=== PATIENT | male | born 1990 | race Caucasian/White ===

== ENCOUNTER 2024-10-19 16:16 | Inpatient (IN) | payer OTHER ==
--- NOTE | 2024-10-19 17:14 | RAD REPORT ---
EXAM: Soft Tissue Neck W/Contr INDICATION: abscess Sagittal and coronal reformations were generated. This exam was performed according to our department al dose-optimization program, which includes automated exposure control, adjustment of the mA and/or kV according to patient size and/or use of iterative reconstruction technique. IV contrast was administered. COMPARISON: None. FINDINGS: Mucosal spaces: Nasopharynx, oropharynx, oral cavity, larynx and hypopharynx are normal. No suspiciou s masses are identified. Epiglottis is normal in configuration. True vocal cords cords are normally situated. Piriform sinuses are well-aerated. There is significant abnormal skin thickening and subcutaneous fluid measuring up to 2 cm in thicknes s along the left face inferior to the left ear. Several areas of thickened fascia are present extending inferiorly. There is probably localized fluid collection in the subcutaneous tissues in thi s region measuring approximately 2 x 3 cm. Accurate measurement is difficult due to somewhat inhomogeneous margins. This most likely represents a cellulitis with underlying abscess. Lymph Nodes: There are numerous enlarged lymph nodes particularly in the left submandibular and jugul ar chain stations. Salivary Glands: Unremarkable. Thyroid Gland: Normal Included Intracranial Structures: Grossly unremarkable. Included Orbits: Normal Paranasal Sinuses: Predominantly clear Tympanomastoid Cavities: Normal Vascular Structures: Normal Osseous Structures: No acute osseous abnormality. Included Lung Apices: Normal IMPRESSION: Significant inflammatory changes are present along the left aspect of the face with presumed reactive lymphadenopathy present in the region. There is skin thickening as well as subcutaneous fluid and fat stranding suggesting cellulitis with subcutaneous abscess present..
[2024-10-19 17:16] LABS: Absolute Basophils 0.1 K/uL (0-0.5); Absolute Eosinophils 0.1 K/uL (0-0.5); Absolute Lymphocytes (CBC) 1.8 K/uL (0.7-4.9); Absolute Monocytes 2.1 K/uL (0.1-1.3); Absolute Neutrophil 16.8 K/uL (1.8-8.0); Basophils % 0.5 % (0-1.3); Eosinophils % 0.6 % (0-4.4); Hematocrit 46.6 % (39.6-49.0); Hemoglobin 15.9 g/dL (13.6-17.9); Lymphocytes % 8.6 % (15.3-44.8); MCHC 34.1 g/dL (32.0-36.0); MCV 82.2 fL (80-100); MPV 8.8 fL (7.6-11.3); Monocytes % 10.2 % (3.3-12.3); Neutrophils % 80.1 % (41.7-73.7); Platelets 276 thou/uL (152-406); RBC Red Blood Cell Count 5.67 M/uL (4.33-5.43); Red Cell Distribution Width 14.4 % (12.1-15.2)
--- NOTE | 2024-10-19 17:16 | RAD REPORT ---
EXAMINATION: CT MAXILLOFACIAL WITH CONTRAST CLINICAL INDICATION: swelling, abscess;Facial pain TECHNIQUE: Axial images were obtained through the facial bones and orbits with intravenous contrast. Sagittal and coronal reconstructions were created from the data. One or more of the following dose reduction techniques were used: Automated exposure control, adjustment of the mA and/or kV according to patient size, and/or iterative reconstruction. Unless otherwise specified, incidental findings do not require dedicated imaging follow-up. COMPARISON: No prior exam. FINDINGS: SOFT TISSUE: Significant skin thickening, subcutaneous fat stranding and subcutaneous fluid is presen t inferior to the left ear. There is amorphous fluid collection in the region below the skin surface about by 3 cm probably localized abscess. BONES: No evidence of fracture, dislocation, or aggressive osseous lesions. No lesion of the visuali zed skull base or calvarium. ORBITS: The globes are intact. No intraorbital hemorrhage or mass. SINUSES: The visualized paranasal sinuses and mastoid air cells are essentially clear. Prominent lymph nodes in the left neck and face are favored to be reactive in etiology. IMPRESSION: Significant left-sided inflammatory changes involving the skin and subcutaneous tissue inferior to th e left ear as detailed. This most likely represents cellulitis with underlying subcutaneous abscess.
--- NOTE | 2024-10-19 17:35 | EDPHYS ---
Physician Documentation [facility] Name: Lucio Bell Age: 34 yrs Sex: Male : 1990 Arrival Date: 10/19/2024 Time: 16:16 Bed 20 Private MD: ED Physician Jose Zarate HPI: 10/19 16:32 This 34 yrs old Male presents to ER via Ambulatory with complaints of Facial Swelling, rn ear swelling. 16:32 the patient presents with a swollen area of the face. Onset: The symptoms/episode rn began/occurred 2 day(s) ago. Patient reports left facial swelling that began 2 days ago. Started as a small pimple that he tried to pop now today significantly larger with more pain. Patient went home and attempted incision and drainage of the abscess with razor blade, he claims it was clean, is draining pus and blood. Did not relieve swelling or pain.. Historical: - Allergies: 16:23 No Known Allergies; ll1 - Home Meds: 16:23 None [Active]; ll1 - PMHx: 16:23 None; ll1 - PSHx: 16:23 None; ll1 - Immunization history:: Adult Immunizations up to date. - Social history:: Smoking status: Patient denies any tobacco usage or history of. - Family history:: not pertinent. - Hospitalizations: : No recent hospitalization is reported. ROS: 16:32 Constitutional: Negative for fever, chills, and weight loss, ENT: Positive for left rn facial swelling and pain Neck: Negative for injury, pain, and swelling, Cardiovascular: Negative for chest pain, palpitations, and edema, Respiratory: Negative for shortness of breath, cough, wheezing, and pleuritic chest pain, Exam: 16:32 Constitutional: This is a well developed, well nourished patient who is awake, alert, rn and in no acute distress. Head/Face: Left periauricular swelling, approximately 5 x 5 cm area of fluctuance and induration with central puncture wound draining bloody and purulent fluid. There is edema of the inferior ear. Induration extends from parotid region to posterior auricular region along hairline. Cardiovascular: Tachycardic, regular Vital Signs: 16:25 BP 149 / 108; Pulse 124; Resp 17; Temp 98.4; Pulse Ox 99% ; Weight 102.06 kg; Height 6 ll1 ft. 1 in. ; Pain 10/10; 16:25 Body Mass Index 29.68 (102.06 kg, 185.42 cm) ll1 16:25 Pain Scale: Adult ll1 MDM: 16:21 Medical Screening Exam initiated rn 17:33 Differential diagnosis: abscess, cellulitis. Data reviewed: vital signs, nurses notes, pattern lease inspector test result(s), radiologic studies, CT scan, and as a result, I will admit patient. Consideration of Admission/Observation Patient was admitted/placed on observation. Escalation of care including admission/observation considered. Management of patient was discussed with the following: Senior Service Technician: Management discussed with Dr. Deras, will consult on patient, request patient n.p.o., IV antibiotics and admission to the hospital. Unsure if going to OR today or tomorrow. Counseling: I had a detailed discussion with the patient and/or guardian regarding the historical points, exam findings, and any diagnostic results supporting the discharge/admit diagnosis, lab results, radiology results, the need for further work-up and treatment in the hospital. 10/19 16:25 Order name: CBC with Diff; Complete Time: 17:35 rn 10/19 16:25 Order name: Basic Metabolic Panel; Complete Time: 17:48 rn 10/19 16:26 Order name: Blood Culture Adult (2) rn 10/19 16:26 Order name: Lactate w/ 2H reflex if indic. rn 10/19 16:26 Order name: Protime (+inr) rn 10/19 16:26 Order name: Ptt, Activated rn 10/19 18:22 Order name: Urinalysis w/ reflexes EDID 10/19 18:22 Order name: CBC with Automated Diff EDID 10/19 18:22 Order name: CBC with Automated Diff EDID 10/19 18:22 Order name: Comprehensive Metabolic Panel EDID 10/19 18:22 Order name: Comprehensive Metabolic Panel EDID 10/19 16:25 Order name: CT Facial Bones W/ Con \T\ Mpr; Complete Time: 17:18 rn 10/19 16:55 Order name: Soft Tissue Neck W/Contr CT; Complete Time: 17:18 rn 10/19 16:25 Order name: IV Start; Complete Time: 18:23 rn 10/19 16:26 Order name: Accucheck; Complete Time: 18:21 rn 10/19 16:26 Order name: Cardiac monitoring; Complete Time: 18: rn 10/19 16:26 Order name: EKG - Nurse/Tech; Complete Time: 18: rn 10/19 16:26 Order name: IV Saline Lock - Large Bore; Complete Time: 18: rn 10/19 16:26 Order name: Labs collected and sent; Complete Time: 18: rn 10/19 16:26 Order name: O2 Per Protocol; Complete Time: 18: rn 10/19 16:26 Order name: O2 Sat Monitoring; Complete Time: 18: rn 10/19 16:26 Order name: Vital Signs; Complete Time: 18: rn Administered Medications: 18:21 Drug: Clindamycin IVPB 600 mg IVPB once over 30 mins; (mix in 50 mL) Route: IVPB; bp Infused Over: 30 mins; Site: right antecubital; 18:21 Drug: NS 0.9% IV 1000 ml IV at 1000 ml once; to be given as a bolus over 60 minutes bp Route: IV; Rate: 1000 ml; Site: right antecubital; Disposition Summary: 10/19/24 17:35 Hospitalization Ordered Notes: Hospitalization Status: Inpatient Admission rn Provider: Albino Villanueva rn Location: Telemetry/MedSurg (Inpatient) rn Condition: Stable rn Problem: new rn Symptoms: have improved rn Bed/Room Type: Standard rn Room Assignment: rn Diagnosis - Facial cellulitis and abscess rn Forms: - Medication Reconciliation Form rn - SBAR form rn - Leadership Thank You Letter rn Signatures: Dispatcher [employer] Jose Gil MD MD rn Peltier, Brian, RN RN bp Lewis, Lynsay RN RN ll1 Corrections: (The following items were deleted from the chart) 16:55 16:55 Soft Tissue Neck W/Contr+CT.RAD.BRZ ordered. EDMS OTILIA
--- NOTE | 2024-10-19 17:35 | ER ---
Nurse's Notes [facility] Name: Lucio Bell Age: 34 yrs Sex: Male : 1990 Arrival Date: 10/19/2024 Time: 16:16 Bed 20 Private MD: Diagnosis: Facial cellulitis and abscess Presentation: 10/19 16:22 Chief complaint: Patient states: Abscess to L ear/head area for 2 days, getting worse ll1 each day. + bloody drainage. Coronavirus screen: Client denies travel out of the [place] in the last 14 days. At this time, the client does not indicate any symptoms associated with coronavirus-19. Ebola Screen: Patient denies travel to an Ebola-affected area in the 21 days before illness onset. Initial Sepsis Screen: Does the patient meet any 2 criteria? No. Patient's initial sepsis screen is negative. Does the patient have a suspected source of infection? No. Patient's initial sepsis screen is negative. Risk Assessment: Do you want to hurt yourself or someone else? Patient reports no desire to harm self or others. Onset of symptoms was October 18, 2024. 16:22 Method Of Arrival: Ambulatory ll1 16:22 Acuity: SANDY 2 ll1 Triage Assessment: 16:23 General: Appears uncomfortable, Behavior is calm, cooperative, appropriate for age. ll1 Pain: Complains of pain in left ear Pain currently is 9 out of 10 on a pain scale. Quality of pain is described as aching, throbbing. Derm: Abscess located on face is half dollar sized, has purulent drainage, is hot to touch, is red, is raised. Historical: - Allergies: 16:23 No Known Allergies; ll1 - Home Meds: 16:23 None [Active]; ll1 - PMHx: 16:23 None; ll1 - PSHx: 16:23 None; ll1 - Immunization history:: Adult Immunizations up to date. - Social history:: Smoking status: Patient denies any tobacco usage or history of. - Family history:: not pertinent. - Hospitalizations: : No recent hospitalization is reported. Screenin:22 [place] ED Fall Risk Assessment (Adult) History of falling in the last 3 months, bp including since admission No falls in past 3 months (0 pts) Confusion or Disorientation No (0 pts) Intoxicated or Sedated No (0 pts) Impaired Gait No (0 pts) Mobility Assist Device Used No (0 pt) Altered Elimination No (0 pt) Score/Fall Risk Level 0 - 2 = Low Risk Oriented to surroundings. Abuse screen: Denies threats or abuse. Denies injuries from another. Nutritional screening: No deficits noted. Tuberculosis screening: No symptoms or risk factors identified. Assessment: 17:15 General: Appears in no apparent distress. Behavior is calm. Pain: Complains of pain in iw left ear and face. Neuro: Level of Consciousness is awake, alert, obeys commands, Oriented to person, place, time, situation, Moves all extremities. Cardiovascular: Patient's skin is warm and dry. Respiratory: Respiratory effort is even, unlabored, Respiratory pattern is regular. EENT: Derm:. Musculoskeletal: Range of motion: intact in all extremities. Injury Description: Laceration sustained to left submandibular area and left lateral aspect of neck Puncture sustained to left ear, left cheek and left jaw. Vital Signs: 16:25 BP 149 / 108; Pulse 124; Resp 17; Temp 98.4; Pulse Ox 99% ; Weight 102.06 kg; Height 6 ll1 ft. 1 in. ; Pain 10/10; 16:25 Body Mass Index 29.68 (102.06 kg, 185.42 cm) ll1 16:25 Pain Scale: Adult ll1 ED Course: 16:20 Patient arrived in ED. im 16:21 Jose Zarate MD is Attending Physician. rn 16:22 Arm band placed on. ll1 16:23 Triage completed. ll1 17:02 CT Facial Bones W/ Con \T\ Mpr In Process Unspecified. EDMS 17:03 Soft Tissue Neck W/Contr CT In Process Unspecified. EDMS 17:12 First set of blood cultures drawn by me. ty 17:12 Inserted saline lock: 22 gauge in right antecubital area, using aseptic technique. ty Blood collected. Flushed with 10 mL NS. 17:12 Initial lab(s) drawn, by ED staff, sent to lab. ty 17:28 Inserted saline lock: 20 gauge in left forearm, using aseptic technique. Blood ty collected. Flushed with 10 mL NS. 17:28 Second set of blood cultures drawn by me. Initial lab(s) drawn, by me, sent to lab. ty 17:34 Albino Villanueva MD is Hospitalizing Provider. rn 17:43 Wilbert Shea, RN is Primary Nurse. bp 18:22 Patient has correct armband on for positive identification. bp 19:50 sent to surgery. ay 19:50 No provider procedures requiring assistance completed. vc1 20:11 Provided Education on: Surgical Consent. vc1 Administered Medications: 18:21 Drug: Clindamycin IVPB 600 mg IVPB once over 30 mins; (mix in 50 mL) Route: IVPB; bp Infused Over: 30 mins; Site: right antecubital; 18:21 Drug: NS 0.9% IV 1000 ml IV at 1000 ml once; to be given as a bolus over 60 minutes bp Route: IV; Rate: 1000 ml; Site: right antecubital; Medication: 20:11 VIS not applicable for this client. vc1 Outcome: 17:35 Decision to Hospitalize by Provider. rn 19:50 Admitted to OR accompanied by tech, ay 19:50 Condition: stable 19:50 Instructed on need for surgery Demonstrated understanding of 20:11 Condition: stable vc1 20:11 Patient left the ED. vc1 Signatures: Dispatcher [employer] EDMS Rylee Barth, RN Jose Cuevas MD MD rn Peltier, Brian, RN RN Soha Lee RN RN ll1 Calcote, Vanessa, RN RN vc1 Lora Acevedo Tylor ty Yakubu, Awudu, RN RN ay
[2024-10-19 17:39] LABS: Anion Gap 9.8 mEq/L (5.0-15.0); Potassium 3.8 mEq/L (3.5-5.1)
[2024-10-19 18:01] LABS: PT Prothrombin Time 13.2 SECONDS (9.4-12.5); PTT, Activated Partial Thromb 32.8 SECONDS (24.3-36.9); Protime INR 1.26
[2024-10-19] MEDS ORDERED: NA CHLORIDE 0.9% 1,000 ML ONE (18:09)
[2024-10-19] MEDS ORDERED: CLINDAMYCIN 600MG/D5W 50 ML IV ONE (18:09)
[2024-10-19] MEDS ORDERED: ACETAMINOPHEN 325 MG TABLET PO PRN (18:17)
[2024-10-19] MEDS ORDERED: MIDAZOLAM HCL 2 MG/2 ML INJ ONE (19:42)
[2024-10-19] MEDS ORDERED: EPHEDRINE SULF 50 MG/ML VIAL ONE (19:43)
[2024-10-19] MEDS ORDERED: FENTANYL CITR 100 MCG/2 ML ONE (19:43)
[2024-10-19] MEDS ORDERED: propofoL 200 MG/20 ML VIAL IV ONE (19:43)
[2024-10-19] MEDS ORDERED: LIDOCAINE 2% MPF 5 ML VIAL ONE (19:44)
[2024-10-19] MEDS ORDERED: SUCCINYLCHOLINE 20 MG/ML (10 ML) IV ONE (19:57)
[2024-10-19] MEDS ORDERED: ROCURONIUM 50 MG/5 ML VIAL IV ONE (19:58)
--- NOTE | 2024-10-19 20:12 | P.HP ---
Certification for Inpatient Patient admitted to: Inpatient With expected LOS: >2 Midnights Practitioner: I am a practitioner with admitting privileges, knowledge of patient current condition, hospital course, and medical plan of care. Services: Services provided to patient in accordance with Admission requirements found in Title 42 Section 412.3 of the Code of Federal Regulations Patient History Date of Service: 10/19/24 Reason for admission: facial swelling History of Present Illness: 34-year-old male presented to the emergency room with complaints of left-sided facial and ear swelling reports onset 4 days ago. He had progressive swelling and redness. He did use a razor blade to try to drain his swelling. Despite that he had progressive swelling. States he felt feverish. Denies checking his temperature. Denies taking any other medications. He works as an maintenance electrician. In the emergency room ENT was contacted. He is being admitted for facial cellulitis and facial swelling. Allergies No Known Allergies Allergy (Unverified 10/19/24 18:39) Review of Systems 10-point ROS is otherwise unremarkable General: Fever ENT: Ear Pain Integumentary: Rash, Lesions Physical Examination - Physical Exam General: Alert, Oriented x3 HEENT: Other (left ear and jawline swelling, with drainage) Respiratory: Clear to auscultation bilaterally, Normal air movement Cardiovascular: No edema, Normal pulses, Regular rate/rhythm Gastrointestinal: Soft and benign, Non-distended Musculoskeletal: No clubbing, No swelling - Studies Laboratory Data (last 24 hrs) 10/19/24 10/19/24 10/19/24 17:23 17:00 17:00 WBC 21.00 H Hgb 15.9 Hct 46.6 Plt Count 276 PT 13.2 H INR 1.26 APTT 32.8 Sodium 133 L Potassium 3.8 BUN 7 Creatinine 0.83 Glucose 264 H Assessment and Plan - Problems (Diagnosis) (1) Acute cellulitis Current Visit: Yes Status: Acute - Plan 34-year-old male presents with left face and ear swelling facial cellulitis/abscess plan: NPO IVF ENT consult followup cultures PRN pain medication vancomycin and zosyn SCDs Full - Advance Directives Does patient have a Living Will: No Does patient have a Durable POA for Healthcare: No
[2024-10-19] MEDS: LIDOCAINE HCL/EPINEPHRINE 20 ML MDV ONE (20:15)
[2024-10-19] MEDS ORDERED: KETOROLAC 30 MG/ML INJ ONE (20:27)
[2024-10-19] MEDS ORDERED: ONDANSETRON 4 MG/2 ML VIAL ONE (20:28)
--- NOTE | 2024-10-19 20:49 | P.OP ---
Web Systems Developer: NONE,NONE Preoperative diagnosis: left facial abscess Postoperative diagnosis: same Primary procedure: incision & drainage of facial abscess Anesthesia: general Estimated blood loss: 20ml Specimen: L facial abscess for culture and sensitivity Findings: copious pus and inflammation Operative Technique: After induction, the face and neck were prepped with Betadine and draped in a sterile fashion. The area of spontaneous drainage was enlarged to a 1cm opening with 15 blade. Culture of wound contents and pus was collected. The abscess cavity was bluntly dissected with clamps and copious irrigation and pressure to the surrounding area was performed with several iterations until the abscess cavity was well evacuated. A 1/4 inch juanito drain was inserted and secured to the skin with a single nylon suture. Direct pressure applied for a few minutes to help control oozing. Gauze and Spandage dressing applied. Patient return to care of anesthesia team for extubation and transport to the recovery room. Plan to admit for IV Abx, await culture results and recommend HgbA1C due to blood glucose >200 on admission with no known prior diagnosis of DM. Complications: None Drain(s): Wound drain Fluids & blood products: seen anesthesia record Transferred to: Recovery Room Condition: Good
[2024-10-19] MEDS: VANCOMYCIN 2.5 GM in NA CHLORIDE 0.9% 500 ML IVPB ONE (21:03)
[2024-10-19 21:09] VITALS: O2SAT 97
[2024-10-19 22:33] VITALS: BMI 29.9
[2024-10-20] MEDS: PIPER TAZO 3.375 GM in NA CHLORIDE 0.9% 100 ML IV SCH (00:47)
[2024-10-20] MEDS: NA CHLORIDE 0.9% 1,000 ML IV SCH (00:47)
[2024-10-20 04:47] LABS: Absolute Eosinophils 0.1 K/uL (0-0.5); Absolute Lymphocytes (CBC) 1.2 K/uL (0.7-4.9); Absolute Monocytes 1.9 K/uL (0.1-1.3); Absolute Neutrophil 13.1 K/uL (1.8-8.0); Basophils % 0.2 % (0-1.3); Eosinophils % 0.9 % (0-4.4); Hematocrit 40.4 % (39.6-49.0); Hemoglobin 13.5 g/dL (13.6-17.9); Lymphocytes % 7.6 % (15.3-44.8); MCH 27.5 pg (27.0-35.0); MCHC 33.3 g/dL (32.0-36.0); MCV 82.7 fL (80-100); MPV 8.4 fL (7.6-11.3); Monocytes % 11.6 % (3.3-12.3); Neutrophils % 79.7 % (41.7-73.7); Platelets 231 thou/uL (152-406); RBC Red Blood Cell Count 4.89 M/uL (4.33-5.43)
[2024-10-20 05:08] LABS: Albumin 2.8 g/dL (3.4-5.0); Albumin/Globulin Ratio 0.7 (1.1-1.8); Anion Gap 9.6 mEq/L (5.0-15.0); Globulin 4.1 g/dL (2.3-3.5); Potassium 3.6 mEq/L (3.5-5.1); Protein, Total 6.9 g/dL (6.4-8.2)
[2024-10-20] MEDS: VANCOMYCIN 2 GM in NA CHLORIDE 0.9% 500 ML IVPB SCH ×2 (07:00→09:51)
[2024-10-20] MEDS ORDERED: GLUCAGON 1 MG/VIAL IM PRN (07:56)
[2024-10-20] MEDS ORDERED: D10W 125 ML IV PRN (07:56)
[2024-10-20] MEDS: INSULIN REGULAR (HUMAN) 100 UNIT/ML SQ SCH (11:30)
[2024-10-20] MEDS ORDERED: MORPHINE 2 MG/ML SYR IV PRN (12:34)
[2024-10-20] MEDS ORDERED: HYDROCODONE/APAP 5/325 MG TAB PO PRN (12:34)
--- NOTE | 2024-10-20 12:46 | P.PN ---
Date of Service: 10/20/24 POD 1 I&D L face. No complaints, pain improving. Resting comfortably. L face juanito in place, gauze overlying with dried blood and exchanged. Wound Cx: pending HbgA1C: 9.4 1. L facial abscess, continue Vanco for now. Follow for cx results. Not cleared for discharge today but will continue to follow daily with patient for progress. 2. DM (new dx) - advised patient of elevated blood glucose on admission and HgbA1C confirming likely dx of DM. Patient does not have current PCP and will need assistance for outpatient FU including establishing PCP and further education re: diet, medication, DM education. Discussed that differentiation of type 1 vs Type 2 is outside my scope but hospitalist service is welcome to provide additional counseling and initiation of medication management. Change to ADA diet.
--- NOTE | 2024-10-20 18:28 | P.PN ---
Subjective Date of Service: 10/20/24 Chief Complaint: facial swelling Status post I&D today. Patient reports some pain in his wound. He has been afebrile. Physical Examination - Vital Signs Temperature: 98.3 F Blood Pressure: 122/79 Pulse: 89 Respirations: 16 Pulse Ox (%): 99 Assessment And Plan - Plan Physical examination General: Alert and oriented x3, NAD, HEENT: Conjunctiva not pale, anicteric sclera Neck: Supple, no elevated JVD Heart: Heart sounds 1 and 2 normal, regular rhythm, normal rate, no pedal edema Lungs: Clear to auscultation bilaterally, adequate breath sounds bilaterally, no rhonchi or crackles. Abdomen: Soft, nondistended, nontender, normal bowel sounds. Extremities: No tenderness, no deformity Skin: I&D wound-left face Neuro: No focal motor deficit. Normal speech. Psychiatry: Normal mood, no agitation. Diagnosis Cellulitis and abscess of face Diabetes mellitus type 2 Plan: ENT input appreciated. Continue IV vancomycin and Zosyn Analgesics as needed Follow deep tissue wound culture Insulin sliding scale for glucose management. Metformin on discharge.
[2024-10-21 08:14] LABS: Absolute Eosinophils 0.3 K/uL (0-0.5); Absolute Lymphocytes (CBC) 1.8 K/uL (0.7-4.9); Absolute Monocytes 1.1 K/uL (0.1-1.3); Absolute Neutrophil 9.6 K/uL (1.8-8.0); Basophils % 0.2 % (0-1.3); Eosinophils % 2.4 % (0-4.4); Hematocrit 39.3 % (39.6-49.0); Hemoglobin 12.8 g/dL (13.6-17.9); Lymphocytes % 14.2 % (15.3-44.8); MCH 27.2 pg (27.0-35.0); MCHC 32.6 g/dL (32.0-36.0); MCV 83.3 fL (80-100); MPV 8.3 fL (7.6-11.3); Monocytes % 8.7 % (3.3-12.3); Neutrophils % 74.5 % (41.7-73.7); Nucleated Red Blood Cells % 0.1 % (0-0); Platelets 270 thou/uL (152-406); RBC Red Blood Cell Count 4.72 M/uL (4.33-5.43); Red Cell Distribution Width 14.1 % (12.1-15.2)
[2024-10-21 08:24] LABS: Anion Gap 9.6 mEq/L (5.0-15.0); Potassium 4.6 mEq/L (3.5-5.1)
--- NOTE | 2024-10-21 10:47 | P.PN ---
Date of Service: 10/21/24 POD 2 I&D L face. No complaints, pain improving. Tolerating diet. Ambulating in hallways Resting comfortably. L face juanito in place, gauze overlying with dried blood. With pressure there is moderate purluence noted. An 18g angiocath is used to irrigate the wound with 10ml sterile saline through the incision and the juanito is left in place and surrounded with fresh gauze. Wound Cx: pending HbgA1C: 9.4 WBC: 21 -> 16 -> 12 Vanco trough 7 - d/w Wilbert in Pharmacy and will increase dose to 2.25gm starting now - patient's AM dose is pending. 1. L facial abscess, continue Vanco for now - increase dose based on trough levels. Follow for cx results. Not cleared for discharge today but will continue to follow daily with patient for progress. 2. DM (new dx) - now of ISS per admitting team.
[2024-10-21] MEDS: VANCOMYCIN 2.25 GM in NA CHLORIDE 0.9% 500 ML IVPB SCH (12:52)
--- NOTE | 2024-10-21 16:37 | P.PN ---
Subjective Date of Service: 10/21/24 Chief Complaint: facial swelling Patient reports some soreness in his in his wound. He has been afebrile. Physical Examination - Vital Signs Temperature: 97.9 F Blood Pressure: 144/98 Pulse: 93 Respirations: 16 Pulse Ox (%): 97 Assessment And Plan - Plan Physical examination General: Alert and oriented x3, NAD, HEENT: Conjunctiva not pale, anicteric sclera Neck: Supple, no elevated JVD Heart: Heart sounds 1 and 2 normal, regular rhythm, normal rate, no pedal edema Lungs: Clear to auscultation bilaterally, adequate breath sounds bilaterally, no rhonchi or crackles. Abdomen: Soft, nondistended, nontender, normal bowel sounds. Extremities: No tenderness, no deformity Skin: I&D wound-left face Neuro: No focal motor deficit. Normal speech. Psychiatry: Normal mood, no agitation. Diagnosis Cellulitis and abscess of face Diabetes mellitus type 2 Plan: ENT input appreciated. Continue IV vancomycin and Zosyn Analgesics as needed Follow deep tissue wound culture Insulin sliding scale for glucose management. Metformin on discharge. 10/21 Wound culture growing coagulase positive staph. Leukocytosis significantly improved. Blood culture shows no growth. Continue current antibiotics Pharmacy is dosing antibiotics Analgesics as needed. Start Lantus insulin to keep fingerstick glucose less than 200.
[2024-10-21] MEDS: INSULIN GLARGINE 100 UNIT/ML SQ SCH (21:16)
[2024-10-22 05:27] LABS: Absolute Eosinophils 0.3 K/uL (0-0.5); Absolute Lymphocytes (CBC) 1.8 K/uL (0.7-4.9); Absolute Monocytes 0.9 K/uL (0.1-1.3); Absolute Neutrophil 7.5 K/uL (1.8-8.0); Basophils % 0.2 % (0-1.3); Eosinophils % 2.9 % (0-4.4); Hematocrit 35.4 % (39.6-49.0); Hemoglobin 11.9 g/dL (13.6-17.9); MCH 27.5 pg (27.0-35.0); MCHC 33.5 g/dL (32.0-36.0); MCV 82.1 fL (80-100); MPV 8.8 fL (7.6-11.3); Monocytes % 8.7 % (3.3-12.3); Neutrophils % 71.2 % (41.7-73.7); Platelets 252 thou/uL (152-406); RBC Red Blood Cell Count 4.31 M/uL (4.33-5.43)
[2024-10-22 05:43] LABS: Anion Gap 7.7 mEq/L (5.0-15.0); Potassium 3.7 mEq/L (3.5-5.1)
[2024-10-22] MEDS: DOXYCYCLINE 100 MG CAP PO SCH (11:09)
[2024-10-22] MEDS: SMZ./TMP. 800/160 MG TABLET PO SCH (11:10)
[2024-10-22 12:49] VITALS: BP 136/85; TEMP 97.5
--- NOTE | 2024-10-22 13:09 | P.DS ---
Admission Date: 10/19/24 Discharge Date: 10/22/24 Disposition: ROUTINE DISCHARGE Discharge Condition: FAIR Reason for Admission: facial swelling Brief History of Present Illness: 34-year-old male presented to the emergency room with complaints of left-sided facial and ear swelling of 4 days duration. He had progressive swelling and redness. He did use a razor blade to try to drain the swelling. States he felt feverish. In the emergency room, ENT was contacted and patient admitted for facial cellulitis and facial swelling. Hospital Course: Diagnosis Cellulitis and abscess of face Diabetes mellitus type 2 Patient was admitted to the medical floor and started on IV vancomycin and Zosyn. He was evaluated by ENT Dr. Deras who performed incision and drainage. Wound culture grew MRSA sensitive to Bactrim and tetracycline. Blood cultures yielded no growth. Patient had severe leukocytosis which resolved with antibiotics. Patient is fingerstick glucose were noted to be elevated. Hemoglobin A1c of 9.82 noting DM type II. Patient was treated briefly with Lantus insulin and insulin sliding scale. Insulin transitioned to oral metformin and glipizide on discharge. Patient informed to follow-up with ENT Dr. Deras within 1 week. Wound care instructions prescribed. Patient also told to establish care with a primary care physician who will follow his diabetes, monitor his fingerstick glucose and adjust his diabetes medications. Vital Signs/Physical Exam: Temp Pulse Resp BP Pulse Ox 97.5 F 68 16 136/85 98 10/22/24 12:00 10/22/24 12:00 10/22/24 12:00 10/22/24 12:00 10/22/24 12:00 General: Alert, In no apparent distress, Oriented x3 HEENT: Mucous membr. moist/pink Neck: JVD not distended Respiratory: Clear to auscultation bilaterally, Normal air movement Cardiovascular: Regular rate/rhythm Gastrointestinal: Normal bowel sounds, Soft and benign, Non-distended Musculoskeletal: No swelling Integumentary: Other (I&D surgical wound wound below the left ear. Wound looks clean.) Neurological: Normal speech, Normal strength at 5/5 x4 extr Lymphatics: No axilla or inguinal lymphadenopathy Laboratory Data at Discharge: WBC 10.50 thou/uL (4.3-10.9) 10/22/24 04:55 Hgb 11.9 g/dL (13.6-17.9) L 10/22/24 04:55 Hct 35.4 % (39.6-49.0) L 10/22/24 04:55 Plt Count 252 thou/uL (152-406) 10/22/24 04:55 PT 13.2 SECONDS (9.4-12.5) H 10/19/24 17:23 INR 1.26 10/19/24 17:23 APTT 32.8 SECONDS (24.3-36.9) 10/19/24 17:23 Sodium 137 mEq/L (136-145) 10/22/24 04:55 Potassium 3.7 mEq/L (3.5-5.1) D 10/22/24 04:55 BUN 4 mg/dL (7-18) L 10/22/24 04:55 Creatinine 0.59 mg/dL (0.70-1.30) L 10/22/24 04:55 Glucose 166 mg/dL (74-106) H 10/22/24 04:55 Total Bilirubin 1.0 mg/dL (0.2-1.0) 10/20/24 04:17 AST 13 U/L (15-37) L 10/20/24 04:17 ALT 31 U/L (16-61) 10/20/24 04:17 Alkaline Phosphatase 177 U/L (45-117) H 10/20/24 04:17 Home Medications: Alcohol Antiseptic Pads [Alcohol Swabs] 1 each TP DAILY #1 box 10/22/24 Blood Sugar Diagnostic [Blood Glucose Test Strip] 1 each MC DAILY #30 strip 10/22/24 Blood-Glucose Meter [Blood Glucose Monitoring] 1 each MC DAILY #1 kit 10/22/24 Codeine/APAP [Tylenol W/Codeine #3 tab] 1 tab PO Q6HP PRN #20 tab 10/22/24 Doxycycline Hyclate 100 mg PO BID #28 cap 10/22/24 Lancets 1 each MC DAILY #100 ea 10/22/24 Metformin HCl [Glucophage*] 500 mg PO BIDWM #60 tab 10/22/24 Smz./Tmp. [Bactrim Ds 800 MG/160 MG] 1 tab PO BID #28 tab 10/22/24 glipiZIDE [Glipizide] 5 mg PO DAILY #30 tab 10/22/24 New Medications: Codeine/APAP [Tylenol W/Codeine #3 tab] 1 tab PO Q6HP PRN #20 tab PRN Reason: Pain Alcohol Antiseptic Pads [Alcohol Swabs] 1 each TP DAILY #1 box Smz./Tmp. [Bactrim Ds 800 MG/160 MG] 1 tab PO BID #28 tab Blood-Glucose Meter [Blood Glucose Monitoring] 1 each MC DAILY #1 kit Blood Sugar Diagnostic [Blood Glucose Test Strip] 1 each MC DAILY #30 strip Doxycycline Hyclate 100 mg PO BID #28 cap glipiZIDE [Glipizide] 5 mg PO DAILY #30 tab Metformin HCl [Glucophage*] 500 mg PO BIDWM #60 tab Lancets 1 each MC DAILY #100 ea Physician Discharge Instructions: Wound Dressing: dry gauze and head wrap to left facial wound PRN for saturation Diet: ADA Activity: Ad garth Followup: Ghazala Deras MD [ACTIVE - CAN ADMIT] - 1 Week NONE,NONE [Primary Care Provider] - 1 Week Time spent managing pt's care (in minutes): 36
--- NOTE | 2024-10-24 12:20 | EKG ---
Test Date: 2024-10-19 Test Time: 18:13:06 Storage Battery Charger: BP MEASUREMENT RESULTS: Intervals: Rate: 110 CT: 140 QRSD: 76 QT: 326 QTc: 441 [place]: P: 47 CT: 140 QRS: 17 T: 4 INTERPRETIVE STATEMENTS: Sinus tachycardia Moderate voltage criteria for LVH, may be normal variant Borderline ECG No previous ECG available for comparison Electronically Signed On 10-24-24 12:14:46 [employer]ARM EQUIPMENT MAINTENANCE SUPERVISOR by Douglas Saavedra
== END 2024-10-22 13:46 | disposition home or self-care (01) | DRG 603 ==
LOC: ER 16:16 → ERHOLD 18:17 → 2ND 20:27
PROVIDERS: ADMIT Internal Medicine; ATTEND Internal Medicine
PROC: 0J910ZZ Drainage of Face Subcutaneous Tissue and Fascia, Open Approach (ICD-10-PCS; principal; 2024-10-19 20:30)
DX: L03.211 Cellulitis of face (principal); L02.01 Cutaneous abscess of face; E11.9 Type 2 diabetes mellitus without complications; B95.62 Methicillin resistant Staphylococcus aureus infection as the cause of diseases classified elsewhere; Z79.84 Long term (current) use of oral hypoglycemic drugs; Z79.899 Other long term (current) drug therapy
CPT/HCPCS: 36415; 70487; 70491; 76377; 80048; 80053; 80202; 82947; 83036; 83605; 85025; 85610; 85730; 87040; 87070; 87077; 87186; 87205; 93005; 96374; 99285; J2003; J2250; J2405; J2543; J2704; J3010; J7030; J7040; Q9967

== ENCOUNTER 2025-05-30 00:41 | Emergency (ER) | payer OTHER ==
--- NOTE | 2025-05-30 00:59 | ER ---
Nurse's Notes [facility] Name: Lucio Bell Age: 34 yrs Sex: Male : 1990 Arrival Date: 05/30/2025 Time: 00:41 Bed 19 Private MD: Diagnosis: Sciatica, right side Presentation: 05/30 00:55 Chief complaint: Patient states: c/o R side sciatic nerve pain x3 weeks. patient states al5 he has a hx of sciatic nerve pain and is prescribed steroids for it. states the steroids normally help him, but he has had no relief in this episode. Coronavirus screen: At this time, the client does not indicate any symptoms associated with coronavirus-19. Ebola Screen: No symptoms or risks identified at this time. Initial Sepsis Screen: Does the patient meet any 2 criteria? No. Patient's initial sepsis screen is negative. Does the patient have a suspected source of infection? No. Patient's initial sepsis screen is negative. Risk Assessment: Do you want to hurt yourself or someone else? Patient reports no desire to harm self or others. Onset of symptoms was May 09, 2025. 00:55 Method Of Arrival: EMS: [facility] al5 00:55 Acuity: SANDY 3 al5 00:55 Care prior to arrival: Medication(s) given: Normal saline infusion, 200 mL Tylenol, al5 1000 mg, IV initiated. 20 GA, in the left hand. Triage Assessment: 00:58 General: Appears in no apparent distress. uncomfortable, Behavior is calm, cooperative. al5 Pain: Complains of pain in right low back Pain radiates to right leg. EENT: No signs and/or symptoms were reported regarding the EENT system. Neuro: Level of Consciousness is awake, alert, obeys commands, Oriented to person, place, time, situation. Cardiovascular: Capillary refill < 3 seconds Patient's skin is warm and dry. Respiratory: Airway is patent Respiratory effort is even, unlabored, Respiratory pattern is regular, symmetrical. GI: No signs and/or symptoms were reported involving the gastrointestinal system. : No signs and/or symptoms were reported regarding the genitourinary system. Derm: Skin is intact, is healthy with good turgor, Skin is pink, warm \T\ dry. normal. Musculoskeletal: Circulation, motion, and sensation intact. Range of motion: intact in all extremities, Reports pain in right lower back. Historical: - Allergies: 01:02 No Known Allergies; al5 - PMHx: 01:02 None; al5 - PSHx: 01:02 None; al5 - Immunization history:: Adult Immunizations up to date. - Infectious Disease History:: Denies. - Social history:: Smoking status: Patient denies any tobacco usage or history of. Patient uses alcohol. Screenin:00 [facility] ED Fall Risk Assessment (Adult) History of falling in the last 3 months, al5 including since admission No falls in past 3 months (0 pts) Confusion or Disorientation No (0 pts) Intoxicated or Sedated No (0 pts) Impaired Gait Yes (1 pt) Mobility Assist Device Used No (0 pt) Altered Elimination No (0 pt) Score/Fall Risk Level 0 - 2 = Low Risk Oriented to surroundings, Maintained a safe environment, Hourly rounding (assess needs \T\ fall precautionary measures) done. Abuse screen: Denies threats or abuse. Denies injuries from another. Nutritional screening: No deficits noted. Tuberculosis screening: No symptoms or risk factors identified. Assessment: 00:59 Reassessment: see triage assessment. al5 01:20 Neuro: Level of Consciousness is awake, alert, obeys commands, Oriented to person, kb4 place, time, situation. Vital Signs: 00:55 BP 139 / 96; Pulse 86; Resp 18; Temp 98.1(O); Pulse Ox 96% on R/A; Weight 103.87 kg; al5 Height 6 ft. 1 in. ; 01:00 BP 129 / 88; Pulse 117; Resp 18; Pulse Ox 100% on R/A; kb4 00:55 Body Mass Index 30.21 (103.87 kg, 185.42 cm) al5 ED Course: 00:45 Patient arrived in ED. kmf 00:47 Margot Kwon FNP-C is [facility]. kb 00:47 Rogelio Key MD is Attending Physician. kb 00:55 Priscilla Munoz RN is Primary Nurse. al5 00:57 Triage completed. al5 00:58 Arm band placed on right wrist. Patient placed in the treatment room, in view of staff al5 members, on pulse oximetry. 01:00 Patient has correct armband on for positive identification. Bed in low position. Call al5 light in reach. Side rails up X 1. Provided Education on: plan of care. 01:01 No provider procedures requiring assistance completed. Maintain EMS IV. Dressing al5 intact. Good blood return noted. Site clean \T\ dry. Gauge \T\ site: 20G L hand. Flushed with 10 mL NS. 01:20 IV discontinued, intact, bleeding controlled, No redness/swelling at site. Pressure kb4 dressing applied. Administered Medications: 01:19 Drug: Decadron - Dexamethasone IVP 10 mg IVP once Route: IVP; Site: left hand; kb4 01:20 Follow up: Response: Medication administered at discharge. kb4 01:19 Drug: Ketorolac IVP 15 mg IVP once Route: IVP; Site: left hand; kb4 01:19 Follow up: Response: No adverse reaction; Medication administered at discharge. kb4 Medication: 01:00 VIS not applicable for this client. al5 Outcome: 00:58 Discharge ordered by MD. kb 01:20 Discharged to home ambulatory, kb4 01:20 Condition: good 01:20 Discharge instructions given to patient, Instructed on discharge instructions, follow up and referral plans. medication usage, Demonstrated understanding of instructions, follow-up care, medications, Prescriptions given X 2, 01:21 Patient left the ED. kb4 Signatures: Margot Kwon, ADJUNCT WRITING INSTRUCTOR-C ADJUNCT WRITING INSTRUCTOR-Jen [facility] Priscilla Munoz RN RN al5 Lauren Chambers RN RN kb4 Corrections: (The following items were deleted from the chart) 01:00 00:55 BP 139 / 96; Pulse 86bpm; Resp 18bpm; Pulse Ox 96% RA; Temp 98.1F Oral; al5 al5 01:21 01:20 BP 129 / 88; Pulse 117bpm; Resp 18bpm; Pulse Ox 100% RA; kb4 kb4
--- NOTE | 2025-05-30 00:59 | EDPHYS ---
Physician Documentation [facility] Name: Lucio Bell Age: 34 yrs Sex: Male : 1990 Arrival Date: 05/30/2025 Time: 00:41 Bed 19 Private MD: ED Physician Rogelio Key HPI: 05/30 00:57 This 34 yrs old Male presents to ER via Unassigned with complaints of Back Pain. kb 00:57 Patient is a 34-year-old male who presents for right lower back/upper buttock pain that kb radiates down right leg that started 3 weeks ago. Reports he has had sciatica in the past but this is worse than its been before. Reports he had steroids at home so he has been taking 1 pill daily for the last 5 days without relief. Denies numbness or tingling. Historical: - Allergies: 01:02 No Known Allergies; al5 - PMHx: 01:02 None; al5 - PSHx: 01:02 None; al5 - Immunization history:: Adult Immunizations up to date. - Infectious Disease History:: Denies. - Social history:: Smoking status: Patient denies any tobacco usage or history of. Patient uses alcohol. ROS: 00:56 Constitutional: As per HPI kb Exam: 00:56 Constitutional: This is a well developed, well nourished patient who is awake, alert, kb and in no acute distress. Head/Face: Normocephalic, atraumatic. ENT: Moist Mucous membranes Respiratory: Respirations even and unlabored. No increased work of breathing. Talking in full sentences Skin: Warm, dry with normal turgor. Normal color. Neuro: Awake and alert, GCS 15, oriented to person, place, time, and situation. 00:56 Musculoskeletal/extremity: Extremities: grossly normal except: noted in the right lower back and right gluteus drew: pain, tenderness, ROM: intact in all extremities, Circulation is intact in all extremities. Sensation intact. Weight bearing: able to fully bear weight, Vital Signs: 00:55 BP 139 / 96; Pulse 86; Resp 18; Temp 98.1(O); Pulse Ox 96% on R/A; Weight 103.87 kg; al5 Height 6 ft. 1 in. ; 01:00 BP 129 / 88; Pulse 117; Resp 18; Pulse Ox 100% on R/A; kb4 00:55 Body Mass Index 30.21 (103.87 kg, 185.42 cm) al5 MDM: 00:47 Medical Screening Exam initiated kb 00:57 Differential diagnosis: sciatica, contusion, Herniated disc. Data reviewed: vital kb signs, nurses notes. Historians other than the Patient: EMS: [facility]. Counseling: I had a detailed discussion with the patient and/or guardian regarding the historical points, exam findings, and any diagnostic results supporting the discharge/admit diagnosis, the need for outpatient follow up, a family practitioner, to return to the emergency department if symptoms worsen or persist or if there are any questions or concerns that arise at home. 01:01 Test considered but Not performed: Labs: UA considered but patient has no urinary kb symptoms or CVA tenderness. X-ray: X-ray considered but patient has no bony tenderness or reported injury or trauma. Administered Medications: 01:19 Drug: Decadron - Dexamethasone IVP 10 mg IVP once Route: IVP; Site: left hand; kb4 01:20 Follow up: Response: Medication administered at discharge. kb4 01:19 Drug: Ketorolac IVP 15 mg IVP once Route: IVP; Site: left hand; kb4 01:19 Follow up: Response: No adverse reaction; Medication administered at discharge. kb4 Disposition Summary: 05/30/25 00:58 Discharge Ordered Notes: Location: Home kb Condition: Stable kb Diagnosis - Sciatica, right side kb Followup: kb - With: Emergency Department - When: As needed - Reason: Worsening of condition Followup: kb - With: Private Physician - When: 2 - 3 days - Reason: Recheck today's complaints, Continuance of care, Re-evaluation by your physician Discharge Instructions: - Discharge Summary Sheet kb - Sciatica, [id number] kb - Back Exercises, [id number] kb Forms: - Medication Reconciliation Form kb - Antibiotic Education kb - Prescription Opioid Use kb - Patient Portal Instructions kb - Leadership Thank You Letter kb Prescriptions: - Diclofenac Sodium 75 mg Oral tablet, delayed release (enteric coated) - take 1 tablet ORAL route 2 times per day As needed; 30 tablet; Refills: 0, kb Product Selection Permitted - orphenadrine citrate 100 mg Oral Tablet Sustained Release - take 1 tablet ORAL route 2 times per day As needed; 20 tablet; Refills: 0, kb Product Selection Permitted Addendum: 06/14/2025 08:06 Co-signature as Attending Physician, Rogelio Key MD I agree with the assessment and c nielsen plan of care. Signatures: Margot Kwon, MANAGER EXPRESS-C MANAGER EXPRESS-Rogelio Kramer MD MD cha Langhorst, Amanda, RN RN al5 Lauren Chambers RN RN kb4
[2025-05-30] MEDS ORDERED: KETOROLAC 30 MG/ML INJ ONE (01:08)
[2025-05-30 01:38] VITALS: TEMP 98.1
[2025-05-30 01:40] VITALS: BP 129/88; O2SAT 100
== END 2025-05-30 01:21 | disposition home or self-care (01) ==
LOC: ER 00:41
DX: M54.31 Sciatica, right side (principal)
CPT/HCPCS: 96375; 96374; 99284; J1100; J1885